=== PATIENT | female | born 1980 | race African-American/Black ===

== ENCOUNTER → 2018-03-30 | Outpatient (CLI) | payer OTHER ==
--- NOTE | 2018-03-30 11:53 | RAD ---
AP and Lateral Views of the Chest 03/30/2018 12:00 AM Indication: COUGH, WEAKNESS TIMES 3 DAYS Comparison: 2 views of the chest August 20, 2013 Findings: There is no focal consolidation or infiltrate identified. The cardiomediastinal silhouette is within normal limits. There is no evidence of pneumothorax or pleural effusion. No acute osseous abnormalities are identified. Impression: No evidence of acute cardiopulmonary process. Electronically signed by: Nathanael Lock MD (03/30/2018 11:50 AM) [id number]
== END | disposition home or self-care (01) ==
LOC: PMG 11:24
PROVIDERS: ATTEND Physician Assistant
DX: R05 Cough (principal)
CPT/HCPCS: 71046

== ENCOUNTER 2019-08-17 09:05 | Emergency (ER) | payer MEDICAID ==
[~2019-08-17] VITALS: Ht 177.8 cm; Wt 60.0 kg
[2019-08-17] MEDS ORDERED: DEXAMETHASONE 4 MG TABLET PO ONE (09:30)
[2019-08-17] MEDS ORDERED: KETOROLAC 30 MG/ML VIAL. IM ONE (09:30)
[2019-08-17] MEDS ORDERED: HYDR-3165 PO (09:33)
[2019-08-17] MEDS ORDERED: PRED20TA PO (09:33)
[2019-08-17] MEDS ORDERED: ORPH-16 PO (09:33)
--- NOTE | 2019-08-17 09:34 | PHYS DOC ---
Past History Additional Past Medical Histor: Chronic neck and back pain Past Surgical History: Hysterectomy Smoking: Non-smoker Alcohol Use: None Drug Use: None Adult General Chief Complaint Chief Complaint: Neck Pain HPI HPI 39-year-old female presents with 1 year history of chronic neck and back pain for which patient has undergone MRI imaging which noted some compression of spinal cord secondary to discs. Patient reports her PCP had not prescribed any pain medication for her. Reports had sent her to neurosurgery for evaluation. Neurosurgeon did not prescribe any medication but rather told her to do some neck exercises. Patient reports symptoms have not improved. Reports she is seeki ng second opinion with a different neurosurgeon, but has yet to see them. Denies recent trauma. Reports had previously been prescribed some muscle relaxers by a former PCP which she has been using with some relief. Denies fever or chills. Review of Systems Review of Systems Constitutional: Denies fever or chills Eyes: Denies redness or eye pain HENT: Denies nasal congestion or sore throat Respiratory: Denies cough or shortness of breath Cardiovascular: Denies chest pain or palpitations GI: Denies abdominal pain, nausea, or vomiting : Denies dysuria or hematuria Musculoskeletal: Denies back pain or joint pain; reports neck and upper back pain Integument: Denies rash or skin lesions Neurologic: Denies headache, focal weakness or sensory changes Complete systems were reviewed and found to be within normal limits, except as documented in this note. Physical Exam Physical Exam Constitutional: Well developed, well nourished, uncomfortable, non-toxic appearance HENT: Normocephalic, atraumatic, oropharynx moist Eyes: PERRL, EOMI, conjunctiva normal, no discharge Neck: Normal range of motion, no midline tenderness, paraspinal tenderness noted, supple Cardiovascular: Heart rate normal, regular rhythm Lungs & Thorax: Bilateral breath sounds clear to auscultation, no wheezing Skin: Warm, dry, no erythema, no rash Back: No midline tenderness, bilateral thoracic paraspinal tenderness, no CVA tenderness Extremities: No tenderness, ROM intact, no edema Neurologic: Alert and oriented X 3, no focal deficits noted Psychologic: Affect normal, judgement normal EKG EKG [] Radiology/Procedures Radiology/Procedures [] Course & Med Decision Making Course & Med Decision Making Patient presents with report of chronic neck and upper back pain which is been ongoing for over a year. No history of recent trauma. Neurologically intact. No midline bony tenderness appreciated. Symptomatic treatment provided. [facility] report obtained. Patient stable for discharge with outpatient follow-up with PCP/pain management. Pain management referral provided. Discussed findings and plan with patient, who acknowledges understanding and agreement. Christopher Disclaimer Christopher Disclaimer This electronic medical record was generated, in whole or in part, using a voice recognition dictation system. Departure Departure: Impression: Primary Impression: Chronic pain Additional Impressions: Neck pain Back pain Disposition: HOME, SELF-CARE Condition: STABLE Referrals: JEREMY PARRA [facility]OLOGIST[facility] (PCP) Patient Instructions: Chronic Back Pain, Chronic Pain, Chronic Pain Management Additional Instructions: Take over the counter Ibuprofen 600mg (3 over the counter tabs) three times a day as needed for pain. Please call pain management for further treatment and evaluation: Dr. Chano [facility]- [address], [address] [place] [address] Scripts Prednisone (PREDNISONE) 20 Mg Tablet 2 TAB PO DAILY for Back pain, #8 TAB Start this prescription tomorrow, 08/18/19 Prov: KAROLINE PAEZ DO 08/17/19 Hydrocodone Bit/Acetaminophen (NORCO 5-325 TABLET) 1 Each Tablet 0.5-1 TAB PO Q6HRS PRN for PAIN, #14 TAB Prov: KAROLINE PAEZ DO 08/17/19 Orphenadrine Citrate (ORPHENADRINE CITRATE) 100 Mg Tablet.er 1 TAB PO BID PRN for MUSCLE PAIN, #14 TAB 0 Refills Prov: KAROLINE PAEZ DO 08/17/19 Problem Qualifiers Primary Impression: Chronic pain Chronic pain type: other chronic pain Qualified Codes: G89.29 - Other chronic pain Additional Impressions: Back pain Back pain location: back pain in unspecified location Chronicity: chronic Back pain laterality: unspecified Qualified Codes: M54.9 - Dorsalgia, unspecified; G89.29 - Other chronic pain KAROLINE PAEZ DO Aug 17, 2019 09:34
[2019-08-17 10:16] VITALS: BP 114/78
== END 2019-08-17 09:48 | disposition home or self-care (01) ==
LOC: ER 09:05
DX: G89.29 Other chronic pain (principal); M54.2 Cervicalgia; M54.6 Pain in thoracic spine; Z90.710 Acquired absence of both cervix and uterus
CPT/HCPCS: 96372; 99283; J1885; J8540

== ENCOUNTER 2019-10-19 22:11 | Emergency (ER) | payer MEDICAID ==
[~2019-10-19] VITALS: Ht 170.2 cm; Wt 69.0 kg
[~2019-10-19 22:11] MED LIST: HYDR-3165 PO; ORPH-16 PO; PRED20TA PO
--- NOTE | 2019-10-19 22:15 | PHYS DOC ---
Past History Past Medical History: No Pertinent History, Sciatica, Other Additional Past Medical Histor: Chronic neck and back pain Past Surgical History: Cervical Fusion, Hysterectomy, Oophorectomy Smoking: Non-smoker Alcohol Use: None Drug Use: None Adult General Chief Complaint Chief Complaint: .." I ve heen having a lot of problems with pain.. and still some neuro problems since my surgery on my neck...I have chronic back pain.. chronic neck pain... but the fusion was to help... I had numbness from top of my head all the was down to my toes on the Lt..then then next day I was numb from top my head to my toes on the right side... I am worried I have a blood clott.. may be the Covid 19 virus.. I do have a follow up with Neurosurgery..." HPI HPI Patient is a 39 year old female who presents with above hx and complaints of chronic low back pain and cervical pain. Patient recently underwent cervical fusion C3 and C4 at [facility] on September 15. Patient reports she does continue to have various chronic neuropathy pain complaints. Patient reports sometimes entire numbness on left side of body then entire right side of body. Was told to follow-up in approximately 2 weeks ago, but became anxious and did not keep follow-up. Patient does have a follow-up with neurosurgery on the first of November.. Patient has also had various nausea episodes when she attempts eat solid foods. The patient denies any specific ill contacts or bad food. Patient denies any history immunosuppression. Has a long history of chronic pain both cervical neuropathy and sciatica. Does not do a flu vaccination. No recent travel outside of [place] area. No history of recent trauma. . Symptoms of nausea has been constant the last two weeks. Nothing makes it better. Review of Systems Review of Systems Constitutional: Subjective history of fever or chills [] Eyes: Denies change in visual acuity, redness, or eye pain [] HENT: History of nasal congestion. Denies sore throat [] Respiratory: Denies cough or shortness of breath [] Cardiovascular: No additional information not addressed in HPI [] GI: Denies abdominal pain, , vomiting, bloody stools or diarrhea []history of nausea when she eats solid foods : Denies dysuria or hematuria [] Musculoskeletal: History of chronic back pain and cervical pain Integument: Denies rash or skin lesions [] Neurologic: Denies headache, episodic episodes of complete left side and then right side focal weakness or numbness sensory changes [] Endocrine: Denies polyuria or polydipsia [] All other systems were reviewed and found to be within normal limits, except as documented in this note. Family History Family History Noncontributory to presentation Current Medications Current Medications See nursing for home meds Allergies Allergies Allergies Coded Allergies Type Severity Reaction Last Updated Verified No Known Drug Allergies 08/17/19 No Physical Exam Physical Exam Constitutional: Moderate acute emotional distress, very anxious in appearance. [] HENT: Normocephalic, atraumatic, bilateral external ears normal, oropharynx moist, no oral exudates, nose normal. [] Eyes: PERRLA, EOMI, conjunctiva normal, no discharge. [] Neck: Normal range of motion, no tenderness, supple, no stridor. [] Surgical scars Cardiovascular: Bradycardia Heart rate regular rhythm, no murmur [] Lungs & Thorax: Bilateral breath sounds equal at apex on auscultation [] Abdomen: Bowel sounds normal, soft, no tenderness, no masses, no pulsatile masses. Slight distention, Old surgery scars. Skin: Warm, dry, no erythema, no rash. Multiple tattoos Back: No tenderness, no CVA tenderness. Complaints of bilateral sciatic tenderness. Extremities: No tenderness, no cyanosis, no clubbing, ROM intact, no edema. [No cording appreciated Neurologic: Alert and oriented X 3, grossly normal motor function, grossly normal sensory function, no focal deficits noted. DTRs +2 brachial and patella. Ambulatory without problems. Psychologic: Affect very anxious, judgement normal, mood normal. [] EKG EKG My interpretation EKG shows a sinus bradycardia 52 bpm. This was nonspecific contour abnormalities anterior septal leads. No findings. Acute STEMI with contr alateral changes.[] Radiology/Procedures Radiology/Procedures [] Course & Med Decision Making Course & Med Decision Making Pertinent Labs and Imaging studies reviewed. (See chart for details) Continue to follow up with Neurosurgery. Keep follow up with Sandip. Call for an earlier apt. than November 15. with neurosurgery if possible. Use the Lidocaine patches. May try Voltaren . Zofran for active nausea and vomiting. Suspect you have a viral component to your nausea. Impression: 1. Cervial Neuropathy- recent cervical fusion of C3 and C4 2. Chronic Pain 3. Viral Syndrome 4. Chronic sciatica [] Dragon Disclaimer Dragon Disclaimer This electronic medical record was generated, in whole or in part, using a voice recognition dictation system. Departure Departure: Disposition: HOME/RESIDENCE PRIOR TO ADM Condition: STABLE Referrals: FABRICE THOMAS (PCP) Scripts Famotidine (PEPCID) 20 Mg Tablet 1 TAB PO BID for gastritis and nausea., #60 TAB 3 Refills Prov: DEMARCUS BULLOCK MD 10/20/19 Diclofenac Sodium (VOLTAREN) 100 Gm Gel..gram. 1 GM TP QID for pain for 30 Days, #100 GM 0 Refills apply to affected area(s) Prov: DEMARCUS BULLOCK MD 10/20/19 Ondansetron Hcl (ZOFRAN) 8 Mg Tablet 8 MG PO 4 times a day prn for active vomiting or severe naus, #30 BOTTLE Prov: DEMARCUS BULLOCK MD 10/20/19 Dragon Disclaimer This chart was dictated in whole or in part using Voice Recognition software in a busy, high-work load, and often noisy Emergency Department environment. It may contain unintended and wholly unrecognized errors or omissions. DEMARCUS BULLOCK MD Oct 19, 2019 22:15
[2019-10-19] MEDS ORDERED: IV RINGERS SOLUTION,LACTATED 1,000 ML IV SCH (23:00)
[2019-10-19] MEDS ORDERED: ONDANSETRON PF 4 MG/2 ML VIAL. IVP ONE (23:00)
[2019-10-19 23:24] LABS: ANION GAP 10 (6-14); BLOOD UREA NITROGEN 9 mg/dL (7-20); CARBON DIOXIDE 26 mmol/L (21-32); CHLORIDE 106 mmol/L (98-107); CREATININE 0.6 mg/dL (0.6-1.0); GLUCOSE 97 mg/dL (70-99); POTASSIUM 3.5 mmol/L (3.5-5.1); SODIUM 142 mmol/L (136-145)
[2019-10-19 23:28] LABS: BASO # 0.1 x10^3/uL (0.0-0.2); BASO % 1 % (0-3); EOS # 0.5 x10^3/uL (0.0-0.7); EOS % 9 % (0-3); HEMOGLOBIN 13.3 g/dL (12.0-15.5); LYMPH # 2.9 x10^3/uL (1.0-4.8); LYMPH % 48 % (24-48); MEAN CORPUSCULAR HEMOGLOBIN 30 pg (25-35); MEAN CORPUSCULAR HGB CONC 33 g/dL (31-37); MEAN CORPUSCULAR VOLUME 90 fL (79-100); MONO # 0.4 x10^3/uL (0.0-1.1); MONO % 6 % (0-9); NEUT # 2.2 x10^3uL (1.8-7.7); NEUT % 37 % (31-73); PLATELET COUNT 227 x10^3/uL (140-400); RED BLOOD COUNT 4.44 x10^6/uL (3.50-5.40); RED CELL DISTRIBUTION WIDTH 13.4 % (11.5-14.5)
[2019-10-19 23:36] LABS: ALBUMIN 3.5 g/dL (3.4-5.0); ALK PHOS 79 U/L (46-116); ALT (SGPT) 17 U/L (14-59); AMYLASE 111 U/L (25-115); AST (SGOT) 15 U/L (15-37); LIPASE 40 U/L (73-393); MAGNESIUM 1.8 mg/dL (1.8-2.4); TOTAL BILIRUBIN 0.1 mg/dL (0.2-1.0); TOTAL PROTEIN 6.5 g/dL (6.4-8.2)
[2019-10-19 23:40] LABS: DIRECT BILIRUBIN < 0.1 mg/dL (0.0-0.2)
[2019-10-20 01:06] LABS: BILIRUBIN,URINE NEG (NEG); CLARITY,URINE CLEAR; COLOR,URINE YELLOW; GLUCOSE,URINE NEG (NEG)
[2019-10-20 01:07] LABS: BACTERIA,URINE FEW /HPF (0-FEW); NITRITE,URINE NEG (NEG); RBC,URINE 0 /HPF (0-2); SQUAMOUS EPITHELIAL CELL,UR OCC /LPF; UROBILINOGEN,URINE 0.2 mg/dL (0.2 mg/dL); WBC,URINE 0 /HPF (0-4)
[2019-10-20 01:08] LABS: BARBITURATES NEG (NEG); BENZODIAZEPINES NEG (NEG); CANNABINOIDS POS (NEG); COCAINE NEG (NEG); METHADONE NEG (NEG); OPIATES NEG (NEG); PHENCYCLIDINE NEG (NEG)
[2019-10-20 01:09] LABS: AMPHETAMINE/METHAMPHETAMINE NEG (NEG)
[2019-10-20] MEDS ORDERED: DICL100G18 TP (01:43)
[2019-10-20] MEDS ORDERED: ONDA8TAB9 PO (01:43)
[2019-10-20 01:45] VITALS: BP 110/78
[2019-10-20] MEDS ORDERED: FAMO-63 PO (01:45)
--- NOTE | 2019-10-22 11:58 | EKG ---
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
== END 2019-10-20 02:00 | disposition home or self-care (01) ==
LOC: ER 22:11
DX: G54.2 Cervical root disorders, not elsewhere classified (principal); G89.29 Other chronic pain; B34.9 Viral infection, unspecified; M54.42 Lumbago with sciatica, left side; M43.22 Fusion of spine, cervical region
CPT/HCPCS: 36415; 80048; 80076; 80307; 81001; 82150; 82550; 83690; 83735; 83880; 84443; 84484; 85025; 85379; 85730; 93005; 96374; 99284; J2405; J7120

== ENCOUNTER → 2020-07-01 | Outpatient (CLI) | payer MEDICAID ==
[~2020-07-01] MED LIST changes: +DICL100G18 TP; +FAMO-63 PO; +ONDA8TAB9 PO
--- NOTE | 2020-07-01 11:12 | RAD ---
CT abdomen pelvis without contrast dated 07/01/2020. Comparison made to December 20, 2012. CLINICAL INDICATION: Hematuria and left-sided stone. TECHNIQUE: Contiguous axial imaging the abdomen pelvis performed without the administration of IV or oral contra st. One or more of the following individualized dose reduction techniques were utilized for this examinat ion: 1. Automated exposure control 2. Adjustment of the mA and/or kV according to patient size 3. Use of iterative reconstruction technique. FINDINGS: Limited images of lung bases are clear. Heart size within normal limits. No pleural or pericardial ef fusion. Solid abdominal viscera not well evaluated in the absence of contrast material. No apparent attenuati on abnormality of the liver or spleen. No biliary ductal dilatation. Gallbladder unremarkable. Pancreas, adrenal glands unremarkable. There is a 2 mm calcific stone at the mid to lower pole left k idney. There is also a punctate calcific stone at the mid to lower pole right kidney. No calculus alexis ng the course of either ureter. No hydronephrosis. Unopacified GI tract normal in caliber and contour. No focal bowel wall thickening. No inflammatory s tranding in the mesentery. No ascites or lymphadenopathy. Abdominal aorta normal in caliber. Images of pelvis show nondistended urinary bladder. There is mild diffuse bladder wall thickening. Th e uterus is surgically absent. No free fluid or pelvic lymphadenopathy. Appendix normal in caliber. Bone windows show no acute findings. Mild lower lumbar spondylosis. IMPRESSION: 1. No acute abnormality of abdomen or pelvis. Normal appendix. 2. Bilateral nephrolithiasis, nonobstructive. 3. Mild diffuse wall thickening of the urinary bladder, nonspecific. Consider acute or chronic cystit is. 4. Status post hysterectomy. Electronically signed by: Philip Arriola MD (07/01/2020 11:09 AM) [id number]
== END ==
LOC: PMG 10:05
PROVIDERS: ATTEND Nurse Practitioner Family
DX: N20.0 Calculus of kidney (principal); M47.816 Spondylosis without myelopathy or radiculopathy, lumbar region; R31.9 Hematuria, unspecified
CPT/HCPCS: 74176

== ENCOUNTER 2020-08-11 10:54 | Emergency (ER) | payer MEDICAID ==
[~2020-08-11] VITALS: Ht 170.2 cm; Wt 62.0 kg
[2020-08-11] MEDS ORDERED: ORPHENADRINE CITRATE 60 MG/2 ML VIAL. IM ONE (11:30)
[2020-08-11] MEDS ORDERED: KETOROLAC 30 MG/ML VIAL. IM ONE (11:30)
--- NOTE | 2020-08-11 11:36 | PHYS DOC ---
Past History Past Medical History: Anxiety, Depression, Hypothyroid, Other Additional Past Medical Histor: PTSD, MOOD DISORDER, INSOMNIA Past Surgical History: Hysterectomy, Other Additional Past Surgical Histo: SPINAL SURGERY Smoking: Non-smoker Alcohol Use: None Drug Use: None General Adult EDM: Chief Complaint: BACK PAIN OR INJURY HPI: HPI: Patient is a 40-year-old female coming in for back pain so she is lying in bed. Patient has a history of chronic back pain and prior cervical spine surgery. States she has not had any recent heavy lifting or movement. Patient states that she is a chronic pain and does not move around much. Has been taking meloxicam for pain but not take anything today To the emergency department. She denies any fevers, weight loss, bowel or bladder dysfunction. Patient states she has a baseline hematuria that she has followed with her primary care for and was told she had bilateral kidney stones up in the kidneys. Denies any personal or family history of cancers. No chronic family history of back pain. Patient has been told that she has bulging disks. Patient states the pain radiates down her legs to her feet. And feels like her feet are tingling. Review of Systems: Review of Systems: All other systems within normal limits except for as noted in the HPI Allergies: Allergies: Allergies Coded Allergies Type Severity Reaction Last Updated Verified gabapentin Allergy Unknown 08/11/20 Yes Uncoded Allergies Type Severity Reaction Last Updated Verified STOOL SOFTNERS Allergy Unknown 08/11/20 Physical Exam: PE: Constitutional: Well developed, well nourished, no acute distress, non-toxic appearance. [] HENT: Normocephalic, atraumatic, bilateral external ears normal, nose normal. [] Eyes: PERRLA, conjunctiva normal, no discharge. [] Neck: No rigidity, supple, no stridor. [] Cardiovascular: Regular rate and rhythm, brisk cap refill [] Lungs & Thorax: Non labored symmetric respirations, no tachypnea or respiratory distress [] Abdomen: Soft, nondistended. Skin: Warm, dry, no erythema, no rash. [] Back: Diffuse tenderness palpation in lumbar area. No deformity or step-off Extremities: No deformities, supine straight leg raise elicits pain in the low back. [] Neurologic: Alert and oriented X 3, no focal deficits noted. Decreased sensa tion left lower extremity [] Psychologic: Affect normal, judgement normal, mood normal. [] Current Patient Data: Vital Signs: Vital Signs Date Time Temp Pulse Resp B/P (MAP) Pulse Ox O2 Delivery O2 Flow Rate FiO2 08/11/20 11:07 98.6 91 18 129/74 (92) 99 EKG: EKG: [] Radiology/Procedures: Radiology/Procedures: [] Heart Score: Risk Factors: Risk Factors: DM, Current or recent (<one month) smoker, HTN, HLP, family history of CAD, obesity. Risk Scores: Score 0 - 3: 2.5% MACE over next 6 weeks - Discharge Home Score 4 - 6: 20.3% MACE over next 6 weeks - Admit for Clinical Observation Score 7 - 10: 72.7% MACE over next 6 weeks - Early Invasive Strategies Course & Med Decision Making: Course & Med Decision Making Pertinent Labs and Imaging studies reviewed. (See chart for details) [] Dragon Disclaimer: Dragon Disclaimer: This electronic medical record was generated, in whole or in part, using a voice recognition dictation system. Departure Departure: Impression: Primary Impression: Lumbar back pain Disposition: 01 DC HOME SELF CARE/HOMELESS Condition: IMPROVED Referrals: BREANNE GENTILE (PCP) Patient Instructions: Back Exercises Scripts Cyclobenzaprine Hcl (CYCLOBENZAPRINE HCL) 5 Mg Tablet 1 TAB PO TID PRN for MUSCLE SPASMS for 5 Days, #15 TAB Prov: AGUSTINA SULLIVAN MD 08/11/20 AGUSTINA SULLIVAN MD Aug 11, 2020 11:36
--- NOTE | 2020-08-11 12:03 | RAD ---
EXAM: CT Abdomen and Pelvis without IV contrast INDICATION: Reason: stone study, bilateral back pain and hematuria / Spl. Instructions: / History: TECHNIQUE: Multi-detector row CT images were acquired from the lung bases through the abdomen and pel vis without the use of IV contrast. Sagittal and coronal images were acquired from the transaxial keshav a. All CT scans performed at this facility utilize dose optimization techniques as appropriate to the exam, including the following: Automated exposure control and adjustment of the mA and/or KV accordi ng to patient size (this includes techniques or standardized protocols for targeted exams where dose is indication/reason for exam). ORAL CONTRAST: None COMPARISON: 07/01/[address] without IV contrast FINDINGS: The absence of IV contrast limits evaluation of soft tissue pathology. LOWER CHEST: Unremarkable LIVER: Unremarkable BILIARY SYSTEM: Gallbladder is unremarkable. Bile ducts are not dilated. PANCREAS: Unremarkable SPLEEN: Unremarkable ADRENALS: Unremarkable KIDNEYS & URETERS: Nonobstructing bilateral punctate nephrolithiasis is redemonstrated. No hydroneph rosis or hydroureter is evident. No perirenal soft tissue stranding. BLADDER: Unremarkable REPRODUCTIVE ORGANS: Hysterectomy GASTROINTESTINAL: The stomach, small bowel, and colon are unremarkable. The appendix is normal. MESENTERY/PERITONEUM/RETROPERITONEUM: Unremarkable VASCULAR: Unremarkable LYMPH NODES: No adenopathy OSSEOUS & SOFT TISSUES: Unremarkable IMPRESSION: 1. Nonobstructive bilateral nephrolithiasis without evidence of ureteral or urinary bladder stones. 2. No acute findings in the abdomen or pelvis otherwise shown on noncontrast CT. Electronically signed by: Heidi Mccarty MD (08/11/2020 12:00 PM) [id number]
[2020-08-11] MEDS ORDERED: CYCL5TAB PO (12:39)
[2020-08-11 12:51] LABS: BILIRUBIN,URINE NEG (NEG); CLARITY,URINE CLOUDY; COLOR,URINE YELLOW; GLUCOSE,URINE NEG (NEG)
[2020-08-11 12:52] LABS: AMORPHOUS SEDIMENT,UR PRESENT /HPF; BACTERIA,URINE 0 /HPF (0-FEW); NITRITE,URINE NEG (NEG); SQUAMOUS EPITHELIAL CELL,UR FEW /LPF
[2020-08-11 13:04] VITALS: BP 111/68
== END 2020-08-11 13:06 | disposition home or self-care (01) ==
LOC: ER 10:54
DX: R31.9 Hematuria, unspecified (principal); M54.5 Low back pain; G89.29 Other chronic pain; E03.9 Hypothyroidism, unspecified; Z90.710 Acquired absence of both cervix and uterus; Z88.8 Allergy status to other drugs, medicaments and biological substances
CPT/HCPCS: 74176; 81001; 87086; 96372; 99284; J1885; J2360

== ENCOUNTER → 2020-08-18 | Outpatient (CLI) | payer MEDICAID ==
[2020-08-11 13:04] VITALS: BP 111/68
[~2020-08-18] MED LIST changes: +CYCL5TAB PO
--- NOTE | 2020-08-19 12:25 | RAD ---
PQRS Compliance Statement: One or more of the following individualized dose reduction techniques were utilized for this examinat ion: 1. Automated exposure control 2. Adjustment of the mA and/or kV according to patient size 3. Use of iterative reconstruction technique CT CERVICAL SPINE WITHOUT CONTRAST Clinical Indication: Reason: NECK PAIN / Spl. Instructions: / History: Comparison: Cervical spine radiographs, August 07, 2020, [facility]. Technique: Noncontrast helical CT of the cervical spine was performed. Axial, sagittal, and coronal reconstructions were obtained. Findings: There is no evidence of acute fracture or acute malalignment. Straightening of normal cervical lordosis may be positional or due to muscle spasm. There is anterior fusion hardware of C4-C5. There is bone graft material at the disc space. No significant interbody f usion is seen. Other disc spaces are relatively maintained. There are no perched or jumped facet join ts. C2/C3: Small central disc protrusion. No significant central canal stenosis. The neural foramina are patent. C3/C4: Small central disc protrusion. No more than mild central canal stenosis. Neural foramina are p atent. C4/C5: The central canal is patent. Neural foramina are adequate. C5/C6: Tiny central endplate spur. The central canal and neural foramina are patent. C6/C7: Small posterior disc bulge. The central canal and neural foramina are adequate. C7/T1: Unremarkable. Visualized soft tissues of the neck demonstrate no significant abnormalities. The visualized lung api nav are clear. IMPRESSION: 1. Straightening of normal cervical lordosis may be positional or due to muscle spasm. 2. ACDF of C4-C5. 3. No high-grade central canal stenosis is seen. Electronically signed by: Jl Segura MD (08/19/2020 12:23 PM) [id number]
== END ==
LOC: CT 12:46
PROVIDERS: ATTEND Nurse Practitioner
DX: M46.02 Spinal enthesopathy, cervical region (principal); M50.223 Other cervical disc displacement at C6-C7 level; Z98.1 Arthrodesis status
CPT/HCPCS: 72125

== ENCOUNTER 2021-03-27 15:11 | Emergency (ER) | payer MEDICAID ==
[~2021-03-27] VITALS: Ht 170.2 cm; Wt 65.9 kg
[2021-03-27] MEDS ORDERED: ONDANSETRON PF 4 MG/2 ML VIAL. ONE (17:15)
[2021-03-27] MEDS ORDERED: KETOROLAC 15 MG/ML VIAL. ONE (17:15)
--- NOTE | 2021-03-27 17:22 | PHYS DOC ---
Past History Past Medical History: Anxiety, Depression, Hypothyroid, Other Additional Past Medical Histor: PTSD, MOOD DISORDER, INSOMNIA, chronic back pain, insomnia (AGUSTINA SULLIVAN MD) Past Surgical History: Hysterectomy, Oophorectomy, Other Additional Past Surgical Histo: SPINAL SURGERY (AGUSTINA SULLIVAN MD) Smoking: Non-smoker Alcohol Use: None Drug Use: None (AGUSTINA SULLIVAN MD) General Adult EDM: Chief Complaint: ABDOMINAL PAIN HPI: HPI: Patient is a 40-year-old female coming in for 3 days of right-sided abdominal pain. Patient is a history of chronic right back pain states she now has pain rating to her right flank and to her right lower quadrant. Describes the pain as pulsating that with intermittent sharp features every 30 to 40 seconds. Patient has a history of constipation thought she just needed to have a bowel movement and took senna. Has been having regular bowel movements but pain has not changed. Pain does not change with food. Is better with holding pressure and la susanne on her right side. Has a history of kidney stones but denies any dysuria, hematuria, urinary urgency or frequency. Has a history of a total hysterectomy no other abdominal surgeries. (AGUSTINA SULLIVAN MD) Review of Systems: Review of Systems: All other systems within normal limits except for as noted in the HPI (AGUSTINA SULLIVAN MD) Allergies: Allergies: Allergies Coded Allergies Type Severity Reaction Last Updated Verified Tricyclic Compounds Allergy Unknown 03/27/21 Yes gabapentin Allergy Unknown 03/27/21 Yes Uncoded Allergies Type Severity Reaction Last Updated Verified STOOL SOFTNERS Allergy Unknown 08/11/20 (AGUSTINA SULLIVAN MD) Physical Exam: PE: Constitutional: Well developed, well nourished, no acute distress, non-toxic appearance. [] HENT: Normocephalic, atraumatic, bilateral external ears normal, nose normal. [] Eyes: PERRLA, conjunctiva normal, no discharge. [] Neck: No rigidity, supple, no stridor. [] Cardiovascular: Regular rate and rhythm, brisk cap refill [] Lungs & Thorax: Non labored symmetric respirations, no tachypnea or respiratory distress [] Abdomen: Soft, nondistended, tenderness to right lower quadrant, guarding or rebound tenderness. Negative Rovsing sign. Negative Rodrigues sign. Skin: Warm, dry, no erythema, no rash. [] Back: Unremarkable Extremities: No deformities, range of motion grossly intact, no lower extremity edema [] Neurologic: Alert and oriented X 3, no focal deficits noted. [] Psychologic: Affect normal, judgement normal, mood normal. [] (AGUSTINA SULLIVAN MD) Current Patient Data: Vital Signs: Vital Signs Date Time Temp Pulse Resp B/P (MAP) Pulse Ox O2 Delivery O2 Flow Rate FiO2 03/27/21 16:08 98.2 83 18 130/69 (89) 98 Room Air (AGUSTINA SULLIVAN MD) EKG: EKG: [] (AGUSTINA SULLIVAN MD) Radiology/Procedures: Radiology/Procedures: [] (AGUSTINA SULLIVAN MD) Radiology/Procedures: [address] [address] IMAGING REPORT Signed PATIENT: TRACEY ALFONSO ACCOUNT: [id number] : 1980 LOCATION: ER AGE: 40 SEX: F EXAM STATUS: REG ER ORD. PHYSICIAN: AGUSTINA SULLIVAN MD REASON: RLQ pain, bloating, 75mls omni 300 PROCEDURE: CT ABD PELV W/ IV CONTRST ONLY EXAMINATION: CT ABDOMEN+PELVIS W CLINICAL HISTORY: RLQ pain, bloating TECHNIQUE: CT of the abdomen and pelvis was performed using standard technique, scanning from just above the dome of the diaphragm to the symphysis pubis following administration of intravenous contrast. CT Dose Reduction Employed: One or more of the following individualized dose reduction techniques were utilized for this examination: 1. Automated exposure control 2. Adjustment of the mA and/or kV according to patient size 3. Use of iterative reconstruction technique. COMPARISON: 08/11/2020 FINDINGS: Visualized heart and lungs unremarkable. Liver, gallbladder, pancreas, spleen, and adrenal glands unremarkable. Bilateral nonobstructive punctate nephrolithiasis. Tiny hypoenhancing foci in the bilateral kidneys, too small adequately characterize but likely benign. Decompressed urinary bladder suboptimally evaluated. Hysterectomy. No bowel dilation or definite wall thickening. Appendix within normal limits. No abdominal aortic or iliac artery aneurysm. No evidence of acute osseous abnormality. Subcentimeter round sclerotic focus in the posterior right ilium, nonspecific but similar to prior study. IMPRESSION: No evidence of acute abdominopelvic abnormality. Electronically signed by: Mahesh Mercado DO (03/27/2021 6:03 PM) [facility] DI[facility] AND SIGNED BY: MAHESH MERCADO DO DATE: 03/27/21 223 CC: AGUSTINA SULLIVAN MD; BREANNE GENTILE ~MTH0 0 (DEMARCUS BULLOCK MD) Heart Score: C/O Chest Pain: No Risk Factors: Risk Factors: DM, Current or recent (<one month) smoker, HTN, HLP, family history of CAD, obesity. Risk Scores: Score 0 - 3: 2.5% MACE over next 6 weeks - Discharge Home Score 4 - 6: 20.3% MACE over next 6 weeks - Admit for Clinical Observation Score 7 - 10: 72.7% MACE over next 6 weeks - Early Invasive Strategies (AGUSTINA SULLIVAN MD) Course & Med Decision Making: Course & Med Decision Making Care transitioned at shift change (AGUSTINA SULLIVAN MD) Course & Med Decision Making See Dr. Sullivan chart for details prior shift change. Pt. stay on clear fluid diet . No solids or milk product x 2 day. Must allow bowel rest. Tylenol and Ibuprofen for pain. Re-exam if no improvment. Follow up with primary. Impression: 1. Abdomen Pain 2. Hematuria 3. Possible Renal Colic ( Hx of 6 previous episode s of eval. for renal stones. )/ (DEMARCUS BULLOCK MD) Dragon Disclaimer: Dragon Disclaimer: This electronic medical record was generated, in whole or in part, using a voice recognition dictation system. (AGUSTINA SULLIVAN MD) Departure Departure: Referrals: BREANNE GENTILE (PCP) Dragon Disclaimer This chart was dictated in whole or in part using Voice Recognition software in a busy, high-work load, and often noisy Emergency Department environment. It may contain unintended and wholly unrecognized errors or omissions. (DEMARCUS BULLOCK MD) AGUSTINA SULLIVAN MD Mar 27, 2021 17:22 DEMARCUS BULLOCK MD Mar 27, 2021 18:07
[2021-03-27] MEDS ORDERED: CONTRAST GIVEN. MC PRN (17:30)
[2021-03-27] MEDS ORDERED: IOHEXOL 300 MG/ML 75 ML VIAL. IV ONE (17:30)
[2021-03-27] MEDS ORDERED: KETOROLAC 15 MG/ML VIAL. IVP ONE (17:45)
[2021-03-27] MEDS ORDERED: ONDANSETRON PF 4 MG/2 ML VIAL. IVP ONE (17:45)
[2021-03-27 18:06] LABS: BASO # 0.1 x10^3/uL (0.0-0.2); BASO % 1 % (0-3); EOS # 0.4 x10^3/uL (0.0-0.7); EOS % 7 % (0-3); HEMATOCRIT 41.2 % (36.0-47.0); HEMOGLOBIN 13.7 g/dL (12.0-15.5); LYMPH # 2.3 x10^3/uL (1.0-4.8); LYMPH % 39 % (24-48); MEAN CORPUSCULAR HEMOGLOBIN 29 pg (25-35); MEAN CORPUSCULAR HGB CONC 33 g/dL (31-37); MEAN CORPUSCULAR VOLUME 88 fL (79-100); MONO # 0.5 x10^3/uL (0.0-1.1); MONO % 8 % (0-9); NEUT # 2.7 x10^3uL (1.8-7.7); NEUT % 45 % (31-73); PLATELET COUNT 243 x10^3/uL (140-400); RED BLOOD COUNT 4.67 x10^6/uL (3.50-5.40); RED CELL DISTRIBUTION WIDTH 12.9 % (11.5-14.5); WHITE BLOOD COUNT 5.9 x10^3/uL (4.0-11.0)
--- NOTE | 2021-03-27 18:06 | RAD ---
EXAMINATION: CT ABDOMEN+PELVIS W CLINICAL HISTORY: RLQ pain, bloating TECHNIQUE: CT of the abdomen and pelvis was performed using standard technique, scanning from just ab ove the dome of the diaphragm to the symphysis pubis following administration of intravenous contrast . CT Dose Reduction Employed: One or more of the following individualized dose reduction techniques wer e utilized for this examination: 1. Automated exposure control 2. Adjustment of the mA and/or kV ac cording to patient size 3. Use of iterative reconstruction technique. COMPARISON: 08/11/2020 FINDINGS: Visualized heart and lungs unremarkable. Liver, gallbladder, pancreas, spleen, and adrenal glands unremarkable. Bilateral nonobstructive punctate nephrolithiasis. Tiny hypoenhancing foci in the bilateral kidneys, too small adequately characterize but likely benign. Decompressed urinary bladder suboptimally evaluated. Hysterectomy. No bowel dilation or definite wall thickening. Appendix within normal limits. No abdominal aortic or iliac artery aneurysm. No evidence of acute osseous abnormality. Subcentimeter round sclerotic focus in the posterior right ilium, nonspecific but similar to prior study. IMPRESSION: No evidence of acute abdominopelvic abnormality. Electronically signed by: Mahesh Tabares DO (03/27/2021 6:03 PM) [facility]
[2021-03-27 18:11] LABS: BACTERIA,URINE 0 /HPF (0-FEW); BILIRUBIN,URINE SMALL (NEG); CLARITY,URINE HAZY; COLOR,URINE YELLOW; GLUCOSE,URINE NEG (NEG); NITRITE,URINE NEG (NEG); RBC,URINE OCC /HPF (0-2); SQUAMOUS EPITHELIAL CELL,UR FEW /LPF; UROBILINOGEN,URINE 0.2 mg/dL (0.2 mg/dL)
[2021-03-27 18:52] LABS: CREATININE 0.6 mg/dL (0.6-1.0); GFR 133.3; POTASSIUM 3.6 mmol/L (3.5-5.1)
[2021-03-27 18:57] LABS: ALBUMIN 3.9 g/dL (3.4-5.0); ALBUMIN/GLOBULIN RATIO 1.3 (1.0-1.7); TOTAL BILIRUBIN 0.3 mg/dL (0.2-1.0)
[2021-03-27] MEDS ORDERED: MORPHINE SULFATE 10 MG/ML SYRINGE. SQ ONE (20:00)
[2021-03-27 20:05] VITALS: BP 117/68
== END 2021-03-27 20:13 | disposition home or self-care (01) ==
LOC: ER 15:11
DX: R10.31 Right lower quadrant pain (principal); R31.9 Hematuria, unspecified; G89.29 Other chronic pain; F41.9 Anxiety disorder, unspecified; F32.9 Major depressive disorder, single episode, unspecified; E03.9 Hypothyroidism, unspecified; Z87.442 Personal history of urinary calculi; Z88.8 Allergy status to other drugs, medicaments and biological substances
CPT/HCPCS: 36415; 74177; 80053; 81001; 83690; 85025; 96372; 96374; 96375; 99285; J1885; J2270; J2405; Q9967

== ENCOUNTER → 2021-04-21 | Outpatient (CLI) | payer MEDICAID ==
[2021-03-27 20:05] VITALS: BP 117/68
[~2021-04-21] MED LIST changes: +IOHEXOL 240 MG/ML 50ML VIAL. ONE; +IOHEXOL 300 MG/ML 75 ML VIAL. IV ONE
--- NOTE | 2021-04-21 11:05 | RAD ---
CT of the abdomen and pelvis with contrast 04/21/2021 11:00 AM Indication: Reason: RLQ PAIN, R/O APPENDICEAL ABSCESS / : Comparison study: CT abdomen and pelvis March 27, 2021 Technique: Multidetector CT imaging of the abdomen and pelvis was performed following the administrat ion of IV contrast. Findings: The partially visualized lung bases demonstrate no acute abnormality. The liver, gallbladder, spleen, bilateral adrenal glands, bilateral kidneys, and pancreas, are grossl y unremarkable. There is no bowel obstruction. No evidence of acute inflammatory change involving vis ualized bowel is identified. The appendix is visualized. The distal appendix has a top normal diamete r of 6 mm. The diameter is unchanged from comparison study when measured in a comparable fashion. No associated inflammatory change is identified. No periappendiceal abscess is seen. Bladder is grossly unremarkable. No free fluid or free air is seen in the abdomen or pelvis. No acute osseous changes a re identified. Impression: No evidence of acute intra-abdominal abnormality or acute change from prior exam. CT DOSING PQRS STATEMENT: One or more of the following individualized dose reduction techniques were utilized for this examinat ion: 1. Automated exposure control 2. Adjustment of the mA and/or kV according to patient size 3. Use of iterative reconstruction technique Electronically signed by: Nathanael Lock MD (04/21/2021 11:03 AM) [id number]
== END ==
LOC: CT 09:33
PROVIDERS: ATTEND Internal Medicine Gastroenterology
DX: R10.9 Unspecified abdominal pain (principal)
CPT/HCPCS: 74177; Q9967